=== PATIENT | male | born 1950 | race American Indian/Alaskan Native ===

== ENCOUNTER 2019-02-02 15:09 | Emergency (ER) | payer MEDICARE ==
[2019-02-02] MEDS ORDERED: SODIUM CHLORIDE 0.9% 1000 ML 1,000 ML IV ONE (16:17)
[2019-02-02] MEDS ORDERED: ONDANSETRON 4 MG/2 ML INJ IV ONE (16:17)
[2019-02-02] MEDS ORDERED: FAMOTIDINE 20 MG/2 ML INJ IV ONE (16:18)
[2019-02-02 16:52] LABS: Basophils % (Auto) 0.3 % (0.0-1.8); Eosinophils # (Auto) 0.2 K/mm3 (0.0-0.4); Eosinophils % (Auto) 3.4 % (0.0-4.3); Hematocrit 30.6 % (35.5-45.6); Hemoglobin 10.4 gm/dl (11.8-15.2); Lymphocytes # (Auto) 1.9 K/mm3 (1.2-5.4); Lymphocytes % (Auto) 27.2 % (13.4-35.0); Mean Corpuscular HGB Conc 34 % (32-34); Mean Corpuscular Volume 88 fl (84-94); Monocytes # (Auto) 0.6 K/mm3 (0.0-0.8); Monocytes % (Auto) 8.1 % (0.0-7.3); Platelet Count 215 K/mm3 (140-440); Red Blood Count 3.49 M/mm3 (3.65-5.03); Red Cell Distribution Width 16.2 % (13.2-15.2)
[2019-02-02 17:17] LABS: Albumin 3.8 g/dL (3.9-5); Calcium 10.2 mg/dL (8.4-10.2)
--- NOTE | 2019-02-02 19:32 | Cat Scan Report ---
CT abdomen pelvis wo con INDICATION: RLQ pain. TECHNIQUE: All CT scans at this location are performed using the following dose modulation technique: Automated exposure control. CONTRAST: None. COMPARISON: None available. CT abdomen: The parenchymal organs are unremarkable in appearance other than small nonobstructing birgit al stones bilaterally. Negative for abdominal mass, fluid collection or inflammation. The bowel is no t dilated or thickened. Atherosclerotic disease disease of the aorta is noted. 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 CT PELVIS: A dialysis catheter is looped in the right lower quadrant. A small amount of free fluid is noted. Negative for pelvic mass, fluid or inflammation. The appendix is normal. The prostate gland i s moderately enlarged. Noninflamed sigmoid diverticula are present. IMPRESSION: 1. Negative for obstruction or localized inflammation. 2. Dialysis catheter and mild expected abdominal fluid. 3. Noninflamed colonic diverticulosis. 4. Prostatomegaly. Signer Name: Ilan Hart MD Signed: 02/02/2019 7:28 PM Workstation Name: [id number]
--- NOTE | 2019-02-02 20:37 | Emergency Department Report ---
ED N/V/D HPI - General Chief complaint: Nausea/Vomiting/Diarrhea Stated complaint: VOMITING Time Seen by Provider: 02/02/19 16:08 Source: patient Mode of arrival: Stretcher Limitations: No Limitations - History of Present Illness Initial comments: Patient is a 68-year-old -[place] male who says some nausea and vomiting for several weeks. The patient also has had bouts of constipation recently and has gone the last 5 days without a bowel movement before that one week. Patient states he gets very nauseous and vomits anytime he moves around. Patient is bed bound but becomes nauseous with transfers. Patient states he has some mild epigastric discomfort. Patient has a history of a hiatal hernia and is on peritoneal dialysis. Patient is complaining of some mild right lower quadrant discomfort. The patient denies cough, congestion fevers or chills at this time. - Related Data Previous Rx's Medication Instructions Recorded Last Taken Type Docusate Sodium [Colace] 100 mg PO BID #30 capsule 02/02/19 Unknown Rx Glycerin Adult 2 gm 3 gm NH DAILY #10 supp.rect 02/02/19 Unknown Rx Promethazine [Phenergan] 25 mg NH Q6HR PRN #10 supp.rect 02/02/19 Unknown Rx Allergies Allergy/AdvReac Type Severity Reaction Status Date / Time No Known Allergies Allergy Unverified 02/02/19 15:45 ED Review of Systems ROS: Stated complaint: VOMITING Other details as noted in HPI Comment: All other systems reviewed and negative ED Past Medical Hx - Past Medical History Hx Hypertension: Yes Hx Renal Disease: Yes - Social History Smoking Status: Never Smoker Substance Use Type: None - Medications Home Medications: Home Medications Medication Instructions Recorded Confirmed Last Taken Type Docusate Sodium [Colace] 100 mg PO BID #30 capsule 02/02/19 Unknown Rx Glycerin Adult 2 gm 3 gm NH DAILY #10 supp.rect 02/02/19 Unknown Rx Promethazine [Phenergan] 25 mg NH Q6HR PRN #10 supp.rect 02/02/19 Unknown Rx ED Physical Exam - General Limitations: No Limitations General appearance: alert, in no apparent distress - Head Head exam: Present: atraumatic, normocephalic - Eye Eye exam: Present: normal appearance - ENT ENT exam: Present: mucous membranes moist - Neck Neck exam: Present: normal inspection - Respiratory Respiratory exam: Present: normal lung sounds bilaterally. Absent: respiratory distress, wheezes, rales, rhonchi - Cardiovascular Cardiovascular Exam: Present: regular rate, normal rhythm, normal heart sounds. Absent: systolic murmur, diastolic murmur, rubs, gallop - GI/Abdominal GI/Abdominal exam: Present: soft, tenderness (RLQ), normal bowel sounds, other (she was a peritoneal dialysis catheter in the left lower quadrant. There is no erythema or pain surrounding this area.). Absent: distended, guarding, rebound - Rectal Rectal exam: Present: deferred - Extremities Exam Extremities exam: Present: normal inspection - Back Exam Back exam: Present: normal inspection - Neurological Exam Neurological exam: Present: alert, oriented X3 - Psychiatric Psychiatric exam: Present: normal affect, normal mood - Skin Skin exam: Present: warm, dry, intact, normal color. Absent: rash ED Course Vital Signs 02/02/19 02/02/19 02/02/19 15:41 17:20 19:30 Temperature 98.1 F 98.2 F Pulse Rate 70 73 Respiratory 16 15 14 Rate Blood Pressure 137/76 182/86 [Left] O2 Sat by Pulse 99 99 100 Oximetry ED Medical Decision Making - Lab Data Result diagrams: 02/02/19 16:21 02/02/19 16:21 Lab Results 02/02/19 02/02/19 Range/Units 16:21 16:21 WBC 7.2 (4.5-11.0) K/mm3 RBC 3.49 L (3.65-5.03) M/mm3 Hgb 10.4 L (11.8-15.2) gm/dl Hct 30.6 L (35.5-45.6) % MCV 88 (84-94) fl MCH 30 (28-32) pg MCHC 34 (32-34) % RDW 16.2 H (13.2-15.2) % Plt Count 215 (140-440) K/mm3 Lymph % (Auto) 27.2 (13.4-35.0) % [place] % (Auto) 8.1 H (0.0-7.3) % Eos % (Auto) 3.4 (0.0-4.3) % Baso % (Auto) 0.3 (0.0-1.8) % Lymph # 1.9 (1.2-5.4) K/mm3 [place] # 0.6 (0.0-0.8) K/mm3 Eos # 0.2 (0.0-0.4) K/mm3 Baso # 0.0 (0.0-0.1) K/mm3 Seg Neutrophils % 61.0 (40.0-70.0) % Seg Neutrophils # 4.4 (1.8-7.7) K/mm3 Sodium 136 L (137-145) mmol/L Potassium 3.7 (3.6-5.0) mmol/L Chloride 91.0 L (98-107) mmol/L Carbon Dioxide 27 (22-30) mmol/L Anion Gap 22 mmol/L BUN 73 H (9-20) mg/dL Creatinine 14.3 H (0.8-1.5) mg/dL Estimated GFR 4 ml/min BUN/Creatinine Ratio 5 % Glucose 112 H (75-100) mg/dL Calcium 10.2 (8.4-10.2) mg/dL Total Bilirubin 0.40 (0.1-1.2) mg/dL AST 11 (5-40) units/L ALT 15 (7-56) units/L Alkaline Phosphatase 39 (35-129) units/L Total Protein 7.6 (6.3-8.2) g/dL Albumin 3.8 L (3.9-5) g/dL Albumin/Globulin Ratio 1.0 % Lipase 46 (13-60) units/L - Radiology Data [facility] [address] [place] [address] Cat Scan Report Signed Patient: JAIME PEDRAZA MR#: [id number] 1 : 1950 Acct:[id number] Age/Sex: 68 / M ADM Date: 02/02/19 Loc: ED Attending Dr: Ordering Physician: RADHA MIJARES MD Date of Service: 02/02/19 Procedure(s): CT abdomen pelvis wo con Accession Number(s): [id number] cc: RADHA MIJARES MD CT abdomen pelvis wo con INDICATION: RLQ pain. TECHNIQUE: All CT scans at this location are performed using the following dose modulation technique: Automated exposure control. CONTRAST: None. COMPARISON: None available. CT abdomen: The parenchymal organs are unremarkable in appearance other than small nonobstructing renal stones bilaterally. Negative for abdominal mass, fluid collection or inflammation. The bowel is not dilated or thickened. Atherosclerotic disease disease of the aorta is noted. 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 CT PELVIS: A dialysis catheter is looped in the right lower quadrant. A small amount of free fluid is noted. Negative for pelvic mass, fluid or inflammation. The appendix is normal. The prostate gland is moderately enlarged. Noninflamed sigmoid diverticula are present. IMPRESSION: 1. Negative for obstruction or localized inflammation. 2. Dialysis catheter and mild expected abdominal fluid. 3. Noninflamed colonic diverticulosis. 4. Prostatomegaly. Signer Name: Ilan Hart MD Signed: 02/02/2019 7:28 PM Workstation Name: [id number] Transcribed By: ES Dictated By: Ilan Hart MD Electronically Authenticated By: Ilan Hart MD Signed Date/Time: 02/02/191927 DD/ 23 TD/TT: - Medical Decision Making Patient's discomfort is likely secondary to some mild constipation. No evidence of a surgical emergency was found. Patient was given IV hydration and nausea medicine he is feeling much improved. Patient be discharged home follow with his GI doctor. Patient is given medication for symptomatic relief. Critical care attestation.: If time is entered above; I have spent that time in minutes in the direct care of this critically ill patient, excluding procedure time. ED Disposition Clinical Impression: Gastritis Qualifiers: Gastritis type: unspecified gastritis Chronicity: acute Gastritis bleeding: without bleeding Qualified Code(s): K29.00 - Acute gastritis without bleeding Constipation Qualifiers: Constipation type: slow transit constipation Qualified Code(s): K59.01 - Slow transit constipation Disposition: DC-01 TO HOME OR SELFCARE Is pt being admited?: No Does the pt Need Aspirin: No Condition: Stable Instructions: Acute Nausea and Vomiting (ED), Constipation (ED), High Fiber Diet (ED) Time of Disposition: 20:37
[2019-02-02] MEDS ORDERED: cloNIDine 0.1 MG TAB PO ONE (20:41)
[2019-02-02] MEDS ORDERED: hydrALAZINE 20 MG/1 ML INJ IV ONE (21:32)
[2019-02-02 22:24] VITALS: BP 132/57
== END 2019-02-02 22:05 | disposition home or self-care (01) ==
LOC: ED 15:09
DX: K29.00 Acute gastritis without bleeding (principal); K59.00 Constipation, unspecified; R11.2 Nausea with vomiting, unspecified; I10 Essential (primary) hypertension; Z79.899 Other long term (current) drug therapy
CPT/HCPCS: 36415; 74176; 80053; 83690; 85025; 96361; 96374; 96375; 99284; J0360; J2405; J7030